=== PATIENT | female | born 1975 | race Caucasian/White ===

== ENCOUNTER → 2016-08-14 | Outpatient (CLI) | payer OTHER | LOC: HEART 5 14:39 | DX: J45.909 Unspecified asthma, uncomplicated (principal) | CPT/HCPCS: 94010 ==

== ENCOUNTER → 2021-05-14 | Outpatient (CLI) | payer OTHER ==
[~2021-05-14] MED LIST: GLUCOPHAGE500 MG PO; NORCO 5-325 TA1 EACH PO
== END ==
LOC: HEART 5 15:20
DX: J45.909 Unspecified asthma, uncomplicated (principal); I73.9 Peripheral vascular disease, unspecified
CPT/HCPCS: 94010